=== PATIENT | male | born 2000 | race Two or more races ===

== ENCOUNTER 2022-11-09 22:59 | Emergency (ER) | payer OTHER ==
[2022-11-10 00:05] LABS: CARBON DIOXIDE,CO2 27.3 mmol/L (21.0-32.0); POTASSIUM,K 3.9 mmol/L (3.5-5.1)
[2022-11-10] MEDS ORDERED: Iopamidol 755 MG/ML 500 ML Multipack Bottle IVPUSH STA (00:09)
== END 2022-11-10 02:09 | disposition home or self-care (01) ==
LOC: MW.ED 22:59
DX: S32.039A Unspecified fracture of third lumbar vertebra, initial encounter for closed fracture (principal); S32.049A Unspecified fracture of fourth lumbar vertebra, initial encounter for closed fracture; S27.329A Contusion of lung, unspecified, initial encounter; J45.909 Unspecified asthma, uncomplicated; Z79.899 Other long term (current) drug therapy; W11.XXXA Fall on and from ladder, initial encounter; Y92.89 Other specified places as the place of occurrence of the external cause; Y99.0 Civilian activity done for income or pay
CPT/HCPCS: 36415; 70450; 71260; 72125; 74177; 80053; 85025; 85610; 86850; 86900; 86901; 99284; Q9967; 72128-26; 72131-26